=== PATIENT | female | born 1975 | race American Indian/Alaskan Native ===

== ENCOUNTER 2019-08-19 03:10 | Emergency (ER) | payer BC ==
[2019-08-19 03:25] VITALS: BP 165/90
[2019-08-19] MEDS ORDERED: HYDROcodone/ACETAMINOPHEN 5-325 MG TAB PO ONE (08:58)
[2019-08-19] MEDS ORDERED: NEOMY 3.5 MG/BACIT 400 UNITS/POLY B 5000 UNITS/GM OINT PACKET TP ONE (08:58)
[2019-08-19] MEDS ORDERED: HYDROGEN PEROXIDE 118 ML SOLUTION TP ONE (09:11)
--- NOTE | 2019-08-19 09:17 | Emergency Department Report ---
ED General Adult HPI - General Chief complaint: Fall Stated complaint: FALL,FACE INJURY TO LT SIDE,DIZZINESS Time Seen by Provider: 08/19/19 08:40 Source: patient Mode of arrival: Ambulatory Limitations: No Limitations - History of Present Illness Initial comments: This is a 44-year-old female with no prior medical history who presents to ED complaining of pain to the left ear that began an hour ago after she accidentally tripped and fell off the bed. Patient states she was in a hotel rooms so surround his ring nods affirmatively when she turned and accidentally fell hitting her ear on the nightstand that caused some abrasions to return here. Patient states she's been having some throbbing aching pain to the left ear and left cheek area. She denies inability to care, bleedings, patient is controlled. She denies any head injury, loss of consciousness or neck pain. Patient was able to get up after incident with no problems. Denies nausea v omiting or blurry vision - Related Data Previous Rx's Medication Instructions Recorded Last Taken Type HYDROcodone/APAP 5-325 [[place] 1 each PO TID #10 tablet 08/19/19 Unknown Rx 5-325 mg TAB] Ibuprofen [Motrin] 800 mg PO Q8HR #30 tab 08/19/19 Unknown Rx Allergies Allergy/AdvReac Type Severity Reaction Status Date / Time No Known Allergies Allergy Unverified 08/19/19 09:02 ED Review of Systems ROS: Stated complaint: FALL,FACE INJURY TO LT SIDE,DIZZINESS Other details as noted in HPI Comment: All other systems reviewed and negative ED Past Medical Hx - Past Medical History Previous Medical History?: Yes Hx Hypertension: Yes - Surgical History Past Surgical History?: Yes Additional Surgical History: Tubaligation - Social History Smoking Status: Former Smoker Substance Use Type: None - Medications Home Medications: Home Medications Medication Instructions Recorded Confirmed Last Taken Type HYDROcodone/APAP 5-325 [[place] 1 each PO TID #10 tablet 08/19/19 Unknown Rx 5-325 mg TAB] Ibuprofen [Motrin] 800 mg PO Q8HR #30 tab 08/19/19 Unknown Rx ED Physical Exam - General Limitations: No Limitations General appearance: alert, in no apparent distress - Head Head exam: Present: atraumatic, normocephalic - Eye Eye exam: Present: normal appearance - ENT ENT exam: Present: mucous membranes moist, TM's normal bilaterally, other (abrasions noted to the left outer ear, no bleeding. Bleeding controlled). Absent: normal external ear exam - Neck Neck exam: Present: normal inspection, full ROM. Absent: tenderness, meningismus, lymphadenopathy - Respiratory Respiratory exam: Present: normal lung sounds bilaterally. Absent: respiratory distress - Cardiovascular Cardiovascular Exam: Present: regular rate, normal rhythm. Absent: systolic murmur, diastolic murmur, rubs, gallop - GI/Abdominal GI/Abdominal exam: Present: soft, normal bowel sounds. Absent: distended - Extremities Exam Extremities exam: Present: normal inspection, full ROM. Absent: tenderness - Back Exam Back exam: Present: normal inspection - Neurological Exam Neurological exam: Present: alert, oriented X3 - Psychiatric Psychiatric exam: Present: normal affect, normal mood - Skin Skin exam: Present: warm, dry, intact, normal color. Absent: rash ED Course Vital Signs 08/19/19 03:18 Temperature 98.4 F Pulse Rate 62 Respiratory 18 Rate Blood Pressure 165/90 O2 Sat by Pulse 99 Oximetry ED Medical Decision Making - Medical Decision Making 44-year-old female presents with abrasions to the left ear status post fall off the bed 's morning. Patient's abrasions were cleaned with peroxide. Patient received pain medication while in the ED. Patient's is up-to-date on her tetanus. Vital signs are normal patient is in no acute distress. Instructions given to patient to follow-up with her primary care physician. Discussed the patient to apply your spine to the respirations daily. Exam was normal other than abrasions Critical care attestation.: If time is entered above; I have spent that time in minutes in the direct care of this critically ill patient, excluding procedure time. ED Disposition Clinical Impression: Ear abrasion, Fall from bed, initial encounter Disposition: - TO HOME OR SELFCARE Is pt being admited?: No Does the pt Need Aspirin: No Condition: Stable Instructions: Abrasion (ED) Additional Instructions: Make sure to follow up with the primary care physician as discussed. Take all your medications as you've been prescribed. If you have any worsening symptoms or develop new symptoms please return to ED immediately. Prescriptions: Ibuprofen [Motrin] 800 mg PO Q8HR #30 tab HYDROcodone/APAP 5-325 [[place] 5-325 mg TAB] 1 each PO TID #10 tablet Referrals: PRIMARY CARE, [Primary Care Provider] - 3-5 Days Forms: Accompanied Note, Work/School Release Form(ED) Time of Disposition: 09:33
== END 2019-08-19 10:04 | disposition home or self-care (01) ==
LOC: ED 03:10
DX: S00.412A Abrasion of left ear, initial encounter (principal); I10 Essential (primary) hypertension; Z98.51 Tubal ligation status; Z79.1 Long term (current) use of non-steroidal anti-inflammatories (NSAID); Z79.899 Other long term (current) drug therapy; Z87.891 Personal history of nicotine dependence; W06.XXXA Fall from bed, initial encounter; Y93.89 Activity, other specified; Y92.89 Other specified places as the place of occurrence of the external cause; Y99.8 Other external cause status
CPT/HCPCS: 99282; 99283; A6250